=== PATIENT | female | born 2000 | race African-American/Black ===

== ENCOUNTER 2023-10-15 13:43 | Emergency (ER) | payer MEDICAID ==
[~2023-10-15] VITALS: Ht 160 cm; Wt 131.5 kg
[2023-10-15 13:48] VITALS: O2SAT 100
[2023-10-15 15:27] VITALS: BP 128/87; PULSE 90; RESP 16; TEMP 98.4
[2023-10-17] MEDS ORDERED: AMOX-494 MT (16:50)
[2023-10-17] MEDS ORDERED: NAPR-681 MT (16:50)
== END 2023-10-15 15:28 | disposition home or self-care (01) ==
LOC: ER 13:43
DX: J02.9 Acute pharyngitis, unspecified (principal); R51.9 Headache, unspecified; R50.9 Fever, unspecified; Z20.822 Contact with and (suspected) exposure to COVID-19
CPT/HCPCS: 87070; 87077; 87426; 87430; 87804; 99283